=== PATIENT | female | born 1995 | race Caucasian/White ===

== ENCOUNTER → 2019-08-29 13:32 | Outpatient (BNVA) | payer SELFPAY | PROVIDERS: Visit Provider Family Medicine | DX: R05 Cough (principal); J20.9 Acute bronchitis, unspecified; J45.901 Unspecified asthma with (acute) exacerbation; J45.21 Mild intermittent asthma with (acute) exacerbation | CPT/HCPCS: 87400 ==

== ENCOUNTER → 2020-03-24 11:33 | Outpatient (BNVA) | payer MEDICAID, SELFPAY | PROVIDERS: Visit Provider Nurse Practitioner | DX: S60.221A Contusion of right hand, initial encounter (principal); X58.XXXA Exposure to other specified factors, initial encounter | CPT/HCPCS: 73130 ==

== ENCOUNTER 2020-03-25 14:57 | Emergency (ER) | payer OTHER, MEDICAID, SELFPAY ==
[2020-03-25] VITALS (12 sets, daily range): BP systolic 108–128; BP diastolic 57–88; PULSE 60–89; RESP 14–18; TEMP 36.3–36.9; O2SAT 98–100; BMI 22.6
--- NOTE | 2020-03-25 16:19 | PC.NURSE ---
Pt began to get very dizzy while sitting still in VF. Per Param Goddard request, pt placed in c-collar and moved to room 13, placed on the monitor.
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
--- NOTE | 2020-03-25 16:21 | XRR_ITS ---
PROCEDURE INFORMATION: Exam: XR Chest, 1 View Exam date and time: 03/25/2020 6:19 PM Age: 24 years old Clinical indication: Cough and dyspnea; Additional info: Dyspnea/cough TECHNIQUE: Imaging protocol: XR of the chest Views: 1 view. COMPARISON: CR Chest 2 views* [id number] 06/26/2017 4:17 PM FINDINGS: Lungs: Unremarkable. No consolidation. Pleural space: Unremarkable. No pleural effusion. No pneumothorax. Heart/Mediastinum: Unremarkable. No cardiomegaly. Bones/joints: Unremarkable. XR/XR chest 1V portable [id number] IMPRESSION: No acute findings.
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
--- NOTE | 2020-03-25 17:23 | PC.NURSE ---
portable ultrasound at bedside
[2020-03-25 17:24] LABS: Add Urine Microscopic? NO
[2020-03-25 17:31] LABS: Urine Appearance Clear (CLEAR); Urine Color Yellow (Yellow); pH Urine 6 (5-7)
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
[2020-03-25 17:32] LABS: Bilirubin Urine Neg (Negative); Blood Urine Neg (Negative); Glucose Urine UA Norm (Normal); Ketones Urine 2+ (Negative); Leukocyte Esterase Urine Negative (Negative); Nitrate Urine Negative (Negative); Protein Urine Neg (Negative); Urobilinogen Urine 1 mg/dL (Negative)
[2020-03-25 17:37] LABS: Basophils % 0.4 %; Eosinophils # 0.1 10^3/uL (0.0-0.8); Eosinophils % 1.4 %; Hemoglobin 12.9 g/dL (11.5-15.3); Lymphocytes # 2.4 10^3/uL (0.8-4.8); Lymphocytes % 25.6 %; Mean Corpuscular HGB Conc 33.9 g/dL (30.0-36.0); Mean Corpuscular Hemoglobin 30.7 pg (28.0-34.0); Mean Corpuscular Volume 90.5 fL (81-99); Mean Platelet Volume 10.9 fL (7.4-10.4); Monocytes # 0.8 10^3/uL (0.2-0.9); Monocytes % 9.1 %; Neutrophils # 5.83 10^3/uL (1.8-7.7); Neutrophils % 63.2 %; Nucleated Red Blood Cells % 0 %; Platelet Count 213 10^3/cmm (130-400); Red Cell Distribution Width 11.9 % (12.1-15.1); White Blood Count 9.2 10^3/uL (4.0-10.0)
--- NOTE | 2020-03-25 17:40 | PC.NURSE ---
Switched arms on orthostatic standing due to patient request of the bp cuff irritating bruises on arm. Laine Granado
[2020-03-25 18:09] LABS: Alanine Aminotransferase 8 U/L (0-33); Albumin Level 4.3 g/dL (3.5-5.2); Alkaline Phosphatase 43 IU/L (35-105); Anion Gap 13.6 (5-19); Aspartate Amino Transferase 13 U/L (0-32); Blood Urea Nitrogen 8 mg/dL (6-20); Calcium 9.2 mg/dL (8.5-10.5); Carbon Dioxide 23 mmol/L (22-29); Chloride 106 mmol/L (98-107); Globulin 2.1 g/dL (1.3-4.6); Glomerular Filtration Rate 123.9 mL/min (90-130); Glucose 94 mg/dL (65-115); Osmolality Calculated 286 mOsm/kg (285-295); Potassium 3.6 mmol/L (3.5-5.1); Sodium 139 mmol/L (136-145); Total Protein 6.4 g/dL (6.6-8.7)
[2020-03-25] MEDS: sodium chloride 0.9% 1,000 ML 999 ML IV (20:39)
== END 2020-03-25 23:56 | disposition home or self-care (01) ==
PROVIDERS: Family Medicine; Emergency Provider Emergency Medicine
DX: S06.0X0A Concussion without loss of consciousness, initial encounter (principal); F17.290 Nicotine dependence, other tobacco product, uncomplicated; V89.2XXA Person injured in unspecified motor-vehicle accident, traffic, initial encounter
CPT/HCPCS: 12345; 36415; 70450; 71045; 72125; 76801; 76817; 80053; 81003; 84702; 85025; 86850; 86900; 90384; 96360; 99283; 99284; J7030

== ENCOUNTER → 2020-03-31 11:45 | Outpatient (BNVA) | payer MEDICAID, SELFPAY | PROVIDERS: Visit Provider Nurse Practitioner Women's Health | DX: O20.0 Threatened abortion (principal) | CPT/HCPCS: 84443; 84702; 87491; 87591; 87661 ==

== ENCOUNTER → 2020-04-13 10:36 | Outpatient (BNVA) | payer SELFPAY | PROVIDERS: Visit Provider Nurse Practitioner Women's Health | DX: Z34.90 Encounter for supervision of normal pregnancy, unspecified, unspecified trimester (principal) | CPT/HCPCS: 81000 ==

== ENCOUNTER → 2020-04-27 16:18 | Outpatient (BNVA) | payer MEDICAID, SELFPAY | PROVIDERS: Visit Provider Obstetrics & Gynecology | DX: O99.331 Smoking (tobacco) complicating pregnancy, first trimester (principal); O99.321 Drug use complicating pregnancy, first trimester; F17.210 Nicotine dependence, cigarettes, uncomplicated; F12.99 Cannabis use, unspecified with unspecified cannabis-induced disorder; Z3A.10 10 weeks gestation of pregnancy | CPT/HCPCS: 80053; 80307; 84315; 85027; 86592; 86762; 86803; 87340; 87806 ==

== ENCOUNTER → 2020-05-18 13:55 | Outpatient (BNVA) | payer MEDICAID, SELFPAY | PROVIDERS: Visit Provider Obstetrics & Gynecology | DX: Z12.4 Encounter for screening for malignant neoplasm of cervix (principal); O20.9 Hemorrhage in early pregnancy, unspecified; O26.891 Other specified pregnancy related conditions, first trimester; Z67.91 Unspecified blood type, Rh negative; O99.331 Smoking (tobacco) complicating pregnancy, first trimester; O99.321 Drug use complicating pregnancy, first trimester | CPT/HCPCS: 84315; 88175 ==

== ENCOUNTER 2020-06-21 06:00 | Outpatient (RCR) | payer OTHER, MEDICAID, SELFPAY | END 2020-07-16 23:59 | disposition home or self-care (01) | LOC: SPT 06:00 | PROVIDERS: Referring Provider Family Medicine; Visit Provider Family Medicine | DX: M54.2 Cervicalgia (principal); V89.2XXD Person injured in unspecified motor-vehicle accident, traffic, subsequent encounter | CPT/HCPCS: 84315; 97162 ==

== ENCOUNTER → 2020-07-06 08:11 | Outpatient (BNVA) | payer MEDICAID, SELFPAY | PROVIDERS: Visit Provider Obstetrics & Gynecology | DX: O32.1XX0 Maternal care for breech presentation, not applicable or unspecified (principal); Z3A.19 19 weeks gestation of pregnancy | CPT/HCPCS: 76805 ==

== ENCOUNTER 2020-08-07 12:47 | Emergency (ER) | payer MEDICAID, SELFPAY ==
[2020-08-07 13:14] VITALS: BP 118/79; PULSE 86; RESP 14; TEMP 36.9; O2SAT 98; BMI 25.0
[2020-08-07 14:17] VITALS: BP 123/72; PULSE 88; RESP 16; O2SAT 99
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
[2020-08-07 14:55] VITALS: BP 110/66; PULSE 74
[2020-08-07 14:58] VITALS: BP 117/72; BP 118/70; PULSE 83; PULSE 90
[2020-08-07 15:23] LABS: Basophils # 0.1 10^3/uL (0.0-0.1); Basophils % 0.5 %; Eosinophils # 0.3 10^3/uL (0.0-0.8); Hematocrit 35.9 % (37.0-47.0); Hemoglobin 12.1 g/dL (11.5-15.3); Lymphocytes # 2.3 10^3/uL (0.8-4.8); Lymphocytes % 15.6 %; Mean Corpuscular HGB Conc 33.7 g/dL (30.0-36.0); Mean Corpuscular Hemoglobin 30.6 pg (28.0-34.0); Mean Corpuscular Volume 90.7 fL (81-99); Mean Platelet Volume 11.3 fL (7.4-10.4); Monocytes # 1.2 10^3/uL (0.2-0.9); Monocytes % 8.1 %; Neutrophils # 10.61 10^3/uL (1.8-7.7); Neutrophils % 72.2 %; Nucleated Red Blood Cells % 0 %; Platelet Count 174 10^3/cmm (130-400); Red Blood Count 3.96 10^6/uL (4.1-5.3); Red Cell Distribution Width 12.4 % (12.1-15.1); White Blood Count 14.7 10^3/uL (4.0-10.0)
--- NOTE | 2020-08-07 15:34 | PC.NURSE ---
Read and agree with assessment
--- NOTE | 2020-08-08 11:27 | DCPLANNER ---
extrusion die repair manager had message to schedule a follow up appointment for patient with [facility] general surgery. extrusion die repair manager emailed patients information to both Sania and Rossana at [facility] General Surgery. Patients information will be printed and reviewed. Clinic will call patient with appointment information.
--- NOTE | 2020-08-15 08:36 | DCPLANNER ---
Patient has a follow up appointment scheduled for August at 11:[address] Erazo. Clinic will call patient with appointment information.
--- NOTE | 2020-09-06 15:13 | DCPLANNER ---
Patient had a follow up appointment scheduled with general surgery - appointment was cancelled.
== END 2020-08-07 15:49 | disposition home or self-care (01) ==
PROVIDERS: Emergency Provider Physician Assistant
DX: O26.892 Other specified pregnancy related conditions, second trimester (principal); K62.5 Hemorrhage of anus and rectum; Z3A.25 25 weeks gestation of pregnancy
CPT/HCPCS: 85025; 99282

== ENCOUNTER → 2020-08-11 15:58 | Outpatient (BNVA) | payer MEDICAID, SELFPAY | PROVIDERS: PCP Family Medicine Adult Medicine; Visit Provider Obstetrics & Gynecology | DX: O99.321 Drug use complicating pregnancy, first trimester (principal) | CPT/HCPCS: 80307; 81000; 82950; 86787 ==

== ENCOUNTER → 2020-08-29 10:36 | Outpatient (BNVA) | payer MEDICAID, SELFPAY | PROVIDERS: PCP Family Medicine Adult Medicine; Visit Provider Obstetrics & Gynecology | DX: O26.891 Other specified pregnancy related conditions, first trimester (principal); O99.321 Drug use complicating pregnancy, first trimester; Z67.91 Unspecified blood type, Rh negative; O99.331 Smoking (tobacco) complicating pregnancy, first trimester | CPT/HCPCS: 84315; 85025; 86850 ==

== ENCOUNTER → 2020-10-10 13:03 | Outpatient (BNVA) | payer MEDICAID, SELFPAY | PROVIDERS: PCP Family Medicine Adult Medicine; Visit Provider Nurse Practitioner Women's Health | DX: O99.321 Drug use complicating pregnancy, first trimester (principal); J30.2 Other seasonal allergic rhinitis; O26.891 Other specified pregnancy related conditions, first trimester; Z67.91 Unspecified blood type, Rh negative; O99.331 Smoking (tobacco) complicating pregnancy, first trimester | CPT/HCPCS: 80307; 84315 ==